=== PATIENT | male | born 1970 | race Caucasian/White ===

== ENCOUNTER 2022-10-01 21:24 | Emergency (ER) | payer MEDICAID, OTHER ==
--- NOTE | 2022-10-01 23:42 | XR ---
EXAMINATION TYPE: XR chest 2V DATE OF EXAM: 10/01/2022 11:37 PM COMPARISON: None TECHNIQUE: XR chest 2V Frontal and lateral views of the chest. CLINICAL INDICATION:Male, 52 years old with history of Chest pain; FINDINGS: Lungs/Pleura: There is no evidence of pleural effusion, focal consolidation, or pneumothorax. Pulmonary vascularity: Unremarkable. Heart/mediastinum: Cardiomediastinal silhouette is unremarkable. Musculoskeletal: No acute osseous pathology. IMPRESSION: No acute cardiopulmonary disease/process.
--- NOTE | 2022-10-01 23:53 | ED ---
General Adult HPI - General Chief complaint: Arrhythmia/Palpitations Stated complaint: poss afib Time Seen by Provider: 10/01/22 23:14 Source: patient, RN notes reviewed Mode of arrival: ambulatory - History of Present Illness Initial comments: This is a 52-year-old male with no past medical history presents emergency Department because his watch stated that he was an age of relation. The patient stated that he has been having increased stress at work and hasn't working longe r hours. The patient stated that he was feeling "off" but did not complain of any chest pain or shortness of breath. The patient could not explain as to his symptoms in particular however stated that he did not feel like his normal self. The patient said because of his watch alerting him and this feeling of feeling off, the patient wanted to be evaluated in the emergency department. The patien t did not complain of any palpitations or lightheadedness or dizziness. The patient was resting in bed comfortable B. The patient stated that he has not had any similar episodes in the past. The patient denied any nausea, vomiting, fevers and chills. - Related Data Previous Rx's Medication Instructions Recorded Acetaminophen with Codeine 1 tab PO Q4H #30 tab 01/17/16 [Tylenol w/codeine #3] Ibuprofen [Motrin] 800 mg PO Q8HR #30 tab 01/17/16 Penicillin V Potassium [Pen Vee K] 500 mg PO QID #28 tab 01/17/16 Allergies Allergy/AdvReac Type Severity Reaction Status Date / Time itraconazole [From Sporanox] Allergy Rash/Hives Verified 02/06/15 17:16 Review of Systems ROS Statement: Those systems with pertinent positive or pertinent negative responses have been documented in the HPI. ROS Other: All systems not noted in ROS Statement are negative. Past Medical History Past Medical History: Asthma History of Any Multi-Drug Resistant Organisms: None Reported Past Surgical History: Orthopedic Surgery Additional Past Surgical History / Comment(s): Sinus surgery; Past Psychological History: No Psychological Hx Reported Past Alcohol Use History: Occasional Past Drug Use History: None Reported General Exam Limitations: no limitations General appearance: alert, in no apparent distress Head exam: Present: atraumatic, normocephalic Eye exam: Present: normal appearance, PERRL Pupils: Present: normal accommodation ENT exam: Present: normal exam, normal oropharynx, mucous membranes moist Neck exam: Present: normal inspection, full ROM Respiratory exam: Present: normal lung sounds bilaterally Cardiovascular Exam: Present: regular rate, normal rhythm, normal heart sounds GI/Abdominal exam: Present: soft, normal bowel sounds Extremities exam: Present: normal inspection, full ROM Back exam: Present: normal inspection, full ROM Neurological exam: Present: alert, oriented X3, CN II-XII intact Psychiatric exam: Present: normal affect, normal mood Skin exam: Present: warm, dry Course Vital Signs 10/01/22 10/02/22 10/02/22 21:27 00:14 01:11 Temperature 97.1 F L 97.5 F L Pulse Rate 91 97 Respiratory 16 18 Rate Blood Pressure 160/103 114/85 128/90 O2 Sat by Pulse 98 98 Oximetry EKG Findings - EKG Comments: EKG Findings:: An EKG was obtained and was interpreted by myself. EKG showed a rate of 92, P rate of 139, QRS duration 93 and QTC of 394. This EKG showed a normal sinus rhythm with no ST segment elevation or depression noted. Medical Decision Making - Medical Decision Making Was pt. sent in by a medical professional or institution? @No Did you speak to anyone other than the patient for history? @No Did you review nursing and triage notes? @Nursing and triage notes were reviewed Were old charts reviewed? @No Differential Diagnosis? @ACS, palpitations, [place] EKG interpreted by me (3pts min.)? @See above X-rays interpreted by me (1pt min.)? @Chest x-ray was obtained and was interpreted by myself and showed no acute intrathoracic process CT interpreted by me (1pt min.)? @ [none] U/S interpreted by me (1pt. min.)? @ [none] What testing was considered but not performed? (CT, X-rays, U/S, labs)? Why? @None What meds were considered but not given? Why? @ [none] Did you discuss the management of the patient with other professionals? @No Did you reconcile home meds? @ [none] Was smoking cessation discussed for >3mins.? @ [none] Was critical care preformed (if so, how long)? @ [none] Were there social determinants of health that impacted care today? How? (Homelessness, low income, unemployed, alcoholism, drug addiction, transportation, low edu. Level, literacy, decrease access to med. care, group home, rehab)? @None Was there de-escalation of care discussed even if they declined? (Discuss DNR or withdrawal of care, Hospice)? @No What co-morbidities impacted this encounter? (DM, HTN, Smoking, COPD, CAD, Cancer, CVA, Hep., AIDS, mental health diagnosis, sleep apnea, morbid obesity)? @None Was patient admitted / discharged? @The patient was seen and evaluated. Initially, an EKG was obtained from triage that showed normal sinus rhythm. The patient initially just wanted to make sure that his rate was okay however due to the patient's symptoms of feeling "off" the patient did have laboratory workup as well as a chest x-ray performed. The patient's brother who is emergency room physician was also contacted while on the phone while I did evaluate the patient and a plan was made between the patient, his brother and myself. Laboratory workup was obtained and chest x-ray was also obtained and was normal. The patient had a negative workup and was deemed stable for discharge. 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 Undiagnosed new problem with uncertain prognosis? @ [none] Drug Therapy requiring intensive monitoring for toxicity (Heparin, Nitro, Insul in, Cardizem)? @ [none] Were any procedures done? @ [none] Diagnosis/symptom? @ Palpitations, NOS as the patient did not have any evidence is noted on exam. Acute, or Chronic, or Acute on Chronic? @Acute Uncomplicated (without systemic symptoms) or Complicated (systemic symptoms)? @Uncomplicated Side effects of treatment? @ [none] Exacerbation, Progression, or Severe Exacerbation] @ [no] Poses a threat to life or bodily function? @ [no] - Lab Data Result diagrams: 10/01/22 23:54 10/01/22 23:54 Lab Results 10/01/22 10/01/22 10/01/22 Range/Units 23:54 23:54 23:54 WBC 8.5 (3.8-10.6) k/uL RBC 5.82 (4.30-5.90) m/uL Hgb 17.5 (13.0-17.5) gm/dL Hct 51.0 (39.0-53.0) % MCV 87.8 (80.0-100.0) fL MCH 30.1 (25.0-35.0) pg MCHC 34.3 (31.0-37.0) g/dL RDW 13.8 (11.5-15.5) % Plt Count 232 (150-450) k/uL MPV 7.9 Neutrophils % 60 % Lymphocytes % 29 % Monocytes % 5 % Eosinophils % 3 % Basophils % 1 % Neutrophils # 5.1 (1.3-7.7) k/uL Lymphocytes # 2.5 (1.0-4.8) k/uL Monocytes # 0.4 (0-1.0) k/uL Eosinophils # 0.2 (0-0.7) k/uL Basophils # 0.1 (0-0.2) k/uL Sodium 140 (137-145) mmol/L Potassium 4.0 (3.5-5.1) mmol/L Chloride 104 (98-107) mmol/L Carbon Dioxide 29 (22-30) mmol/L Anion Gap 7 mmol/L BUN 23 H (9-20) mg/dL Creatinine 1.11 (0.66-1.25) mg/dL Est GFR (CKD-EPI)AfAm 87 (>60 ml/min/1.73 sqM) Est GFR (CKD-EPI)NonAf 76 (>60 ml/min/1.73 sqM) Glucose 185 H (74-99) mg/dL Calcium 9.4 (8.4-10.2) mg/dL Magnesium 2.2 (1.6-2.3) mg/dL Total Bilirubin 0.7 (0.2-1.3) mg/dL AST 29 (17-59) U/L ALT 57 H (4-49) U/L Alkaline Phosphatase 89 (38-126) U/L Troponin I <0.012 (0.000-0.034) ng/mL Total Protein 7.6 (6.3-8.2) g/dL Albumin 4.6 (3.5-5.0) g/dL TSH (0.465-4.680) mIU/L 10/01/22 Range/Units 23:54 WBC (3.8-10.6) k/uL RBC (4.30-5.90) m/uL Hgb (13.0-17.5) gm/dL Hct (39.0-53.0) % MCV (80.0-100.0) fL MCH (25.0-35.0) pg MCHC (31.0-37.0) g/dL RDW (11.5-15.5) % Plt Count (150-450) k/uL MPV Neutrophils % % Lymphocytes % % Monocytes % % Eosinophils % % Basophils % % Neutrophils # (1.3-7.7) k/uL Lymphocytes # (1.0-4.8) k/uL Monocytes # (0-1.0) k/uL Eosinophils # (0-0.7) k/uL Basophils # (0-0.2) k/uL Sodium (137-145) mmol/L Potassium (3.5-5.1) mmol/L Chloride (98-107) mmol/L Carbon Dioxide (22-30) mmol/L Anion Gap mmol/L BUN (9-20) mg/dL Creatinine (0.66-1.25) mg/dL Est GFR (CKD-EPI)AfAm (>60 ml/min/1.73 sqM) Est GFR (CKD-EPI)NonAf (>60 ml/min/1.73 sqM) Glucose (74-99) mg/dL Calcium (8.4-10.2) mg/dL Magnesium (1.6-2.3) mg/dL Total Bilirubin (0.2-1.3) mg/dL AST (17-59) U/L ALT (4-49) U/L Alkaline Phosphatase (38-126) U/L Troponin I (0.000-0.034) ng/mL Total Protein (6.3-8.2) g/dL Albumin (3.5-5.0) g/dL TSH 4.520 (0.465-4.680) mIU/L Disposition Clinical Impression: Palpitations Disposition: HOME SELF-CARE Condition: Stable Instructions (If sedation given, give patient instructions): Heart Palpitations (ED) Is patient prescribed a controlled substance at d/c from ED?: No Referrals: Gabriele Wayne MD [Primary Care Provider] - 1-2 days Time of Disposition: 00:45
[2022-10-02 00:06] LABS: Basophils # (A) 0.1 k/uL (0-0.2); Basophils % (A) 1 %; Eosinophils # (A) 0.2 k/uL (0-0.7); Eosinophils % (A) 3 %; HGB 17.5 gm/dL (13.0-17.5); Lymphocytes # (A) 2.5 k/uL (1.0-4.8); Lymphocytes % (A) 29 %; MCH 30.1 pg (25.0-35.0); MCHC 34.3 g/dL (31.0-37.0); MCV 87.8 fL (80.0-100.0); Mean Platelet Volume 7.9; Monocytes # (A) 0.4 k/uL (0-1.0); Monocytes % (A) 5 %; Neutrophils # (A) 5.1 k/uL (1.3-7.7); Neutrophils % (A) 60 %; Platelet Count 232 k/uL (150-450); RBC 5.82 m/uL (4.30-5.90); RDW 13.8 % (11.5-15.5); WBC 8.5 k/uL (3.8-10.6)
[2022-10-02 00:30] LABS: Albumin 4.6 g/dL (3.5-5.0); Calcium 9.4 mg/dL (8.4-10.2); Magnesium 2.2 mg/dL (1.6-2.3); Total Bilirubin 0.7 mg/dL (0.2-1.3); Total Protein 7.6 g/dL (6.3-8.2)
[2022-10-02 01:13] VITALS: BP 128/90; PULSE 97; RESP 18; TEMP 97.5
== END 2022-10-02 01:14 | disposition home or self-care (01) ==
LOC: EC 21:24
DX: R00.2 Palpitations (principal); J45.909 Unspecified asthma, uncomplicated
CPT/HCPCS: 36415; 71046; 80053; 83735; 84443; 84484; 85025; 93005; 99285

== ENCOUNTER 2025-04-22 11:33 | Emergency (ER) | payer BC, MEDICAID ==
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
[2025-04-22] MEDS: DIPH,PERTUS(ACELL)TETVAC-LF 0.5 ML VIAL IM ONE (13:18)
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
[2025-04-22] MEDS: BACITRACIN OINT 1 EACH PACKET TOPICAL ONE (13:27)
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
--- NOTE | 2025-04-22 13:56 | XR ---
Right wrist. HISTORY: Pain following trauma COMPARISON: 3 views the right wrist are obtained. FINDINGS: There is no fracture, dislocation, intraosseous or intra-articular abnormality. The soft tissues are normal without radiopaque foreign body. IMPRESSION: No significant abnormality seen. No evidence of acute trauma. [facility] , 04/22/2025 1:54 PM
--- NOTE | 2025-04-22 13:58 | XR ---
Right hand HISTORY: Pain following trauma COMPARISON: None TECHNIQUE: 3 views of right hand were obtained. FINDINGS: There is no fracture, dislocation, intraosseous, intra-articular or soft tissue abnormality. IMPRESSION: No significant abnormality seen. No evidence of acute trauma [facility], , 04/22/2025 1:55 PM
[2025-04-22 14:17] VITALS: BP 124/76; PULSE 94; RESP 18; TEMP 97.9
== END 2025-04-22 14:22 | disposition home or self-care (01) ==
LOC: EC 11:33
DX: S50.311A Abrasion of right elbow, initial encounter (principal); S19.9XXA Unspecified injury of neck, initial encounter; M79.601 Pain in right arm; E11.9 Type 2 diabetes mellitus without complications; Z88.3 Allergy status to other anti-infective agents; Z23 Encounter for immunization; V00.841A Fall from standing electric scooter, initial encounter
CPT/HCPCS: 73080; 73110; 73130; 72125; 70450; 71250; 90715; 99284; 90471; L0120